=== PATIENT | female | born 1980 | race Caucasian/White ===

== ENCOUNTER 2021-04-06 17:23 | Emergency (ER) | payer SELFPAY ==
[~2021-04-06] VITALS: Ht 172.7 cm; Wt 81.6 kg
[2021-04-06 17:39] VITALS: BP 119/70
== END 2021-04-06 21:59 | disposition left against medical advice (07) ==
LOC: EDBD 17:23 → ER 17:23
DX: F10.129 Alcohol abuse with intoxication, unspecified (principal); F91.9 Conduct disorder, unspecified; Y90.9 Presence of alcohol in blood, level not specified